=== PATIENT | male | born 1985 | race Two or more races ===

== ENCOUNTER 2019-01-14 16:06 | Emergency (ER) | payer OTHER ==
[~2019-01-14] VITALS: Ht 188 cm; Wt 81.6 kg
--- NOTE | 2019-01-14 16:20 | NUR ---
PT AAOX4. AMBULATORY. PT BIBMOTHER C/O diarrhea x 6 days, +N/V, abd pain 06/21. PT believes the pain started after thanksgiving. rr even and unlabored. pt denies vomiting at the moment. placed on monitor and puls ox. no acute distress noted.
[2019-01-14] MEDS ORDERED: DICYCLOMINE HCL 10 MG CAPSULE PO ONE ×2 (16:52→17:00)
[2019-01-14] MEDS ORDERED: IV NS 0.9% 1,000 ML BAG IV ONE (17:00)
[2019-01-14 17:20] LABS: BASOPHILS % (AUTO) 0.1 % (0.0-2.0); EOSINOPHILS % (AUTO) 2.7 % (0.0-6.0); HEMATOCRIT 45 % (39-51); LYMPHOCYTES # (AUTO) 1.2 /CMM (0.8-4.8); MEAN CORPUSCULAR HGB CONC 34 g/dl (31.0-36.0); MEAN CORPUSCULAR VOLUME 90 fL (80-96); MONOCYTES # (AUTO) 0.5 /CMM (0.1-1.30); MONOCYTES % (AUTO) 7.7 % (2.0-12.0); NEUTROPHILS # (AUTO) 5.1 /CMM (1.8-8.9); NEUTROPHILS % (AUTO) 72.5 % (43.0-81.0); PLATELET COUNT (AUTO) 176 /CMM (150-450); RED BLOOD CELL COUNT(AUTO) 4.94 MIL/uL (4.5-6.0); WHITE BLOOD COUNT (AUTO) 7.1 K/uL (4.3-11.0)
[2019-01-14 17:27] LABS: CALCIUM, SERUM 9.2 mg/dL (8.5-10.1); POTASSIUM 4.1 mmol/L (3.5-5.1)
[2019-01-14 17:33] LABS: ALBUMIN 3.7 g/dL (3.4-5.0); BILIRUBIN,DIRECT 0.1 mg/dL (0.0-0.2); BILIRUBIN,TOTAL 0.3 mg/dL (0.2-1.0); TOTAL PROTEIN, SERUM 7.1 g/dL (6.4-8.2)
--- NOTE | 2019-01-14 18:00 | NUR ---
URINE COLLECTED AND SENT TO LAB
--- NOTE | 2019-01-14 18:10 | NUR ---
Patient discharged to home in stable condition. Written and verbal after care instructions given. Patient verbalizes understanding of instruction and RX. IV removed. Catheter intact and site benign. Pressure and 4x4 applied to site. No bleeding noted. PT ambulatory with a steady gait.
[2019-01-14 18:11] VITALS: BP 124/86
== END 2019-01-14 18:14 | disposition home or self-care (01) ==
LOC: ER 16:06
DX: R19.7 Diarrhea, unspecified (principal); R11.2 Nausea with vomiting, unspecified
CPT/HCPCS: 36415; 80048; 80076; 83690; 85025; 96360; 99283; J7030